=== PATIENT | female | born 1990 | race Caucasian/White ===

== ENCOUNTER → 2020-07-11 | Outpatient (CLI) | payer OTHER ==
[~2020-07-11] MED LIST: BENTYL 10MG CAP10 MG PO; HYDROCODON-ACE1 EAC4 PO; IBUPROFEN600 MG PO; NORFLEX 100 MG100 MG PO; PROZAC40 MG PO
== END ==
LOC: ECHO 11:00
DX: R07.9 Chest pain, unspecified (principal)
CPT/HCPCS: ECHO; 93306

== ENCOUNTER → 2020-07-12 | Outpatient (CLI) | payer OTHER | LOC: HEART 5 06-27 11:00 | DX: R07.9 Chest pain, unspecified (principal); R00.2 Palpitations ==

== ENCOUNTER → 2020-08-18 | Day surgery (SDC) | payer OTHER ==
[2020-08-18 10:24] LABS: HEMOGLOBIN 14.3 gm/dl (12.3-15.3); RED BLOOD COUNT 4.82 M/UL (4.00-5.10); WHITE BLOOD COUNT 7.9 K/UL (4.5-11.0)
== END | disposition home or self-care (01) ==
LOC: OR 08:15
PROVIDERS: Obstetrics & Gynecology
DX: N92.1 Excessive and frequent menstruation with irregular cycle (principal); N94.6 Dysmenorrhea, unspecified; Z88.0 Allergy status to penicillin; K58.9 Irritable bowel syndrome, unspecified; F41.9 Anxiety disorder, unspecified; F32.9 Major depressive disorder, single episode, unspecified; E28.2 Polycystic ovarian syndrome; K21.9 Gastro-esophageal reflux disease without esophagitis; Z87.891 Personal history of nicotine dependence; Z88.5 Allergy status to narcotic agent; Z88.1 Allergy status to other antibiotic agents
CPT/HCPCS: 36415; 81001; 84702; 85025; J1100; J2250; J2405; J2704; J2795; J3010; J7030; J7120

== ENCOUNTER 2021-05-04 17:30 | Emergency (ER) | payer OTHER ==
[2021-05-04] MEDS ORDERED: CYCLOBENZAPRINE10 MG PO (19:06)
[2021-05-04] MEDS ORDERED: NAPROSYN500 MG PO (19:06)
== END 2021-05-04 19:30 | disposition home or self-care (01) ==
LOC: ER1 17:30
DX: S50.812A Abrasion of left forearm, initial encounter (principal); S16.1XXA Strain of muscle, fascia and tendon at neck level, initial encounter; Z88.0 Allergy status to penicillin; Z88.5 Allergy status to narcotic agent; Z91.040 Latex allergy status; V49.9XXA Car occupant (driver) (passenger) injured in unspecified traffic accident, initial encounter; W22.11XA Striking against or struck by driver side automobile airbag, initial encounter; Y92.410 Unspecified street and highway as the place of occurrence of the external cause
CPT/HCPCS: 72125; 72128; 72131; 73090; 96372; 99284; J1885

== ENCOUNTER → 2021-05-11 | Outpatient (CLI) | payer OTHER ==
[~2021-05-11] MED LIST changes: +CYCLOBENZAPRINE10 MG PO; +NAPROSYN500 MG PO
== END ==
LOC: RAD 13:47
DX: M25.571 Pain in right ankle and joints of right foot (principal); M79.671 Pain in right foot; M89.8X8 Other specified disorders of bone, other site
CPT/HCPCS: 71046; 73610; 73630

== ENCOUNTER 2021-07-10 15:00 | Emergency (ER) | payer OTHER ==
[2021-07-10 15:23] LABS: RED BLOOD COUNT 4.85 M/UL (4.00-5.10); WHITE BLOOD COUNT 10.5 K/UL (4.5-11.0)
[2021-07-10 15:48] LABS: BUN/CREATININE RATIO 17 (0-10)
[2021-07-10] MEDS ORDERED: OMNICEF 300 MG300 MG PO (16:47)
== END 2021-07-10 17:10 | disposition home or self-care (01) ==
LOC: ER1 15:00
PROVIDERS: Emergency Medicine
DX: N39.0 Urinary tract infection, site not specified (principal); F17.290 Nicotine dependence, other tobacco product, uncomplicated; Z87.442 Personal history of urinary calculi
CPT/HCPCS: 80053; 81001; 83690; 84703; 85025; 87086; 99284